=== PATIENT | female | born 1970 | race Caucasian/White ===

== ENCOUNTER 2019-09-06 00:32 | Day surgery (SDC) | payer BC, OTHER, SELFPAY ==
[2019-09-02 13:10] VITALS: BMI 39.4
[2019-09-06] MEDS: LACTATED RINGERS 1,000 ML 30 ML IV CONT (06:25)
[2019-09-06 06:31] VITALS: BP 134/62; PULSE 67; RESP 20; TEMP 36.7; O2SAT 100
--- NOTE | 2019-09-06 06:40 | WPDANESEPPF ---
Anes - Initial Pre Proc Eval Procedure: Operation Date: 09/06/19 09:15 Proposed Procedures p Hysteroscopy, Dilation and Curettage - Melody Ravi MD Date/Time: 09/06/19 06:40 Surgeon: Melody Ravi MD Pre Op Diagnosis: Menorrhagia Patient Data Age: 49 Gender: F Height: 5 ft 4 in Weight: 116.4 kg Last Vital Signs Temp 36.7 C 09/06/19 06:31 Pulse 67 09/06/19 06:31 Resp 20 09/06/19 06:31 BP 134/62 09/06/19 06:31 Pulse Ox 100 09/06/19 06:31 Allergies Allergy/AdvReac Type Severity Reaction Status Date / Time No Known Allergies Allergy Verified 09/06/19 06:12 Home Medications Medication Instructions Recorded Confirmed Type alprazolam 0.25 mg PO DAILY PRN 09/02/19 09/02/19 History lisinopril 5 mg PO DAILY 09/02/19 09/06/19 History omeprazole 20 mg PO DAILY 09/02/19 09/06/19 History thyroid (pork) [[place] Thyroid] 120 mg PO DAILY 09/02/19 09/06/19 History Patient hx anesthesia problems: none Family hx anesthesia problems: none [facility] Past Medical History Medical History (Updated 09/06/19 @ 06:42 by Bijan Thao MD) Depression GERD (gastroesophageal reflux disease) HTN (hypertension) Hypothyroidism Morbid obesity Anes - Eval Final PreProcedure Day of Procedure 09/06/19 06:40 Patient weight: morbidly obese Heart: regular rate and rhythm Lungs: clear to auscultation Airway: Mallampati scale class II Neurological: alert and oriented Last oral intake: >/= 8 hours ASA classification: III Emergent: no Anesthetic plan: proceed Anesthesia type and monitoring: general GIVS and standard monitoring Informed Consent: The patient's anesthetic plan and its attendant risks and benefits were discussed with the patient/family/POA. Questions were solicited and answers provided to the satisfaction of the patient/family/POA.
--- NOTE | 2019-09-06 06:46 | ECG_ITS ---
Measurements Intervals [place] Rate: 70 P: 18 [place]: 169 QRS: 30 QRSD: 101 T: 24 QT: 385 QTc: 416 Interpretive Statements SINUS RHYTHM NORMAL ECG Electronically Signed On 09-06-2019 8:17:14 DEXIGRAPH OPERATOR by Adriel Aparicio D.O.
--- NOTE | 2019-09-06 07:09 | PM.HPGS ---
History of Present Illness History of Present Illness Consent: Risks, benefits, and alternatives have been discussed and questions answered. Patient agrees to proceed with procedure. Chief complaint: Menorrhagia Narrative: Mamadou Bush is a 49 year old female A1 with menorrhagia. Patient with onset of cycle 07/27/19 and bled continuously until 09/04/19. Cycles over past year have been q month except she did skip 2 months. Recommend to proceed with work up of abnormal bleeding with hysteroscopy and D&C. Reviewed risks of infection, bleeding, and perforation. Discussed possible pathology. Patient voices understanding and agrees to proceed. [facility] Past Medical History Medical History (Updated 09/06/19 @ 07:14 by Melody Ravi MD) Depression GERD (gastroesophageal reflux disease) HTN (hypertension) Hypothyroidism Morbid obesity Surgical History Surgical History (Updated 09/06/19 @ 07:13 by Melody Ravi MD) S/P laparoscopic cholecystectomy Meds Home Medications and Allergies Home Medications Medication Instructions Recorded Confirmed Type alprazolam 0.25 mg PO DAILY PRN 09/02/19 09/02/19 History lisinopril 5 mg PO DAILY 09/02/19 09/06/19 History omeprazole 20 mg PO DAILY 09/02/19 09/06/19 History thyroid (pork) [[place] Thyroid] 120 mg PO DAILY 09/02/19 09/06/19 History Allergies Allergy/AdvReac Type Severity Reaction Status Date / Time No Known Allergies Allergy Verified 09/06/19 06:12 Vital Signs Vital Signs - 24 hr 09/06/19 06:31 Temperature 98.1 F Pulse Rate 67 Respiratory Rate 20 Blood Pressure 134/62 Pulse Oximetry 100 Exam Narrative: Exam Narrative: BMI 43.7 Const: General: no acute distress Resp: Auscultation: clear to auscultation bilaterally Cardio: Rate: regular rate Rhythm: regular rhythm GI: GI Palp: Yes Soft to palpation Percussion: Yes other (suboptimal due to panus) Assessment and Plan Assessment and plan (1) Menorrhagia: Code(s): N92.0 - Excessive and frequent menstruation with regular cycle Status: Acute Assessment and Plan: Plan to proceed with hysteroscopy and D&C
--- NOTE | 2019-09-06 08:02 | PM.OP ---
Procedure Note - Brief Procedure Note - Brief Date of procedure: 09/06/19 Pre-op diagnosis: Menorrhagia Post-op diagnosis: same Procedure performed: D&C hysteroscopy with myosure Anesthesia: MAC and local Surgeon: Melody Ravi MD Estimated blood loss (mL): 5 Drains: No Packing: No Pathology: yes (myosure shavings and endometrial curettings) Complications: No immediate complications Condition: stable Disposition: PACU Findings: uterus 10 cm; anterior wall thickened with calcifications
--- NOTE | 2019-09-06 08:03 | SUR.OPER ---
hysteroscopy fluid 700ml in 680ml out
[2019-09-06 08:10] VITALS: BP 115/62; PULSE 73; RESP 18; O2SAT 99
[2019-09-06 08:35] VITALS: BP 111/66; PULSE 54; RESP 14
[2019-09-06 09:05] VITALS: BP 112/62; PULSE 58; RESP 14
--- NOTE | 2019-09-06 11:57 | OP_ITS ---
DATE OF PROCEDURE: 09/06/2019 PREOPERATIVE DIAGNOSIS: Menorrhagia. POSTOPERATIVE DIAGNOSIS: Menorrhagia. PROCEDURE: D and C, hysteroscopy with MyoSure biopsy. PATHOLOGY: Endometrial shavings and curettings. ESTIMATED BLOOD LOSS: 5 cc. DESCRIPTION OF PROCEDURE: The patient was taken to the operating room, placed under anesthesia in the dorsal lithotomy position. She was prepped and draped in the usual sterile fashion. Bivalved speculum was placed in the vagina. Cervix was grasped on the anterior lip with a tenaculum and injected with 1% lidocaine. The uterus was sounded to 10 cm. The cervix was serially dilated with Hegars. The diagnostic hysteroscope was placed. The anterior fundal wall appears thickened with calcifications. The remainder of the endometrium appears grossly normal. The MyoSure device was opened and placed. Under direct visualization, the thickened anterior wall was biopsied throughout. The MyoSure device was removed. The medium sharp curette was used to sharply curette the remainder of the endometrium until a good uterine cry was noted in all areas. All instruments were then removed. The patient was awakened from anesthesia and taken to Recovery in stable condition. D I MT: Sam
== END 2019-09-06 09:25 | disposition home or self-care (01) ==
PROVIDERS: Visit Provider Obstetrics & Gynecology Gynecology
PROC: 0U5B8ZZ Destruction of Endometrium, Via Natural or Artificial Opening Endoscopic (ICD-10-PCS; CPT 58563; principal; 2019-09-06 09:15)
DX: N92.0 Excessive and frequent menstruation with regular cycle (principal); N84.0 Polyp of corpus uteri; I10 Essential (primary) hypertension; E03.9 Hypothyroidism, unspecified; K21.9 Gastro-esophageal reflux disease without esophagitis; E66.01 Morbid (severe) obesity due to excess calories; Z68.41 Body mass index [BMI] 40.0-44.9, adult
CPT/HCPCS: 58558; 88305; 93005; A9270; J0131; J1100; J2250; J2405; J2704; J3010; J7030; J7120

== ENCOUNTER 2020-02-29 09:53 | Emergency (ER) | payer OTHER, SELFPAY ==
--- NOTE | ~2020-02-29 | US_ITS ---
EXAMINATION: US pelvic complete w TV DATE: 02/29/2020 12:22 INDICATION: Abnormal uterine bleeding. TECHNIQUE: Multiple transabdominal and transvaginal sonographic images of the pelvis were obtained. COMPARISON: CT abdomen and pelvis FINDINGS: TRANSABDOMINAL ULTRASOUND: The uterus measures 11.2 x 5.2 x 6.1 cm. The right ovary measures 2.4 x 1.0 x 2.0 cm. There is no des e fluid in the pelvis. TRANSVAGINAL ULTRASOUND: The endometrial complex measures 4 mm in thickness. There is a 3.1 cm hypoechoic intramural fibroid i n the anterior uterus. There are multiple nabothian cysts in the cervix. The left ovary is not visual ized. IMPRESSION: 1. Uterine fibroid. Reviewed, dictated and finalized at location B. IMPRESSION: 1. Uterine fibroid.
[2020-02-29 10:01] VITALS: BP 144/69; PULSE 92; RESP 19; TEMP 36.8; O2SAT 100
[2020-02-29 10:38] VITALS: BP 123/75; PULSE 78
[2020-02-29 10:39] VITALS: BP 128/79; PULSE 79
[2020-02-29 10:40] VITALS: BP 118/76; PULSE 82
[2020-02-29 10:43] LABS: Basophils Percent Auto 0.6 % (0.2-1.2); Eosinophils Absolute Auto 0.4 K/mm3 (0-0.3); Eosinophils Percent Auto 6.5 % (0-4.4); Hematocrit 39.1 % (37.0-47.0); Immature Granulocyte Absolute 0.03 K/mm3 (0.00-0.031); Immature Granulocyte Percent A 0.6 % (0-0.5); Lymphocytes Absolute Auto 1.54 K/mm3 (0.9-3.2); Lymphocytes Percent Auto 28.5 % (18.3-44.2); Mean Corpuscular HGB Conc 33.2 g/dl (32-36); Mean Corpuscular Hemoglobin 31.5 pg (26-34); Mean Corpuscular Volume 94.7 fl (80-100); Mean Platelet Volume 10.2 fl (7.4-10.4); Monocytes Absolute Auto 0.4 K/mm3 (0.1-0.6); Monocytes Percent Auto 7.2 % (2.6-8.5); Neutrophils Absolute Auto 3.1 K/mm3 (1.3-6.7); Neutrophils Percent Auto 56.6 % (45.5-73.1); Platelet Count Result 217 k/mm3 (150-375); Red Blood Count 4.13 M/mm3 (4.2-5.4); Red Cell Distribution Width 12.5 % (11.5-14.5); White Blood Count 5.4 K/mm3 (4.5-10.0)
--- NOTE | 2020-02-29 10:52 | ED.FEMALEGU ---
HPI - Female Genitourinary General Chief complaint: Vaginal Bleeding <Natalie Morley PA-C - Last Filed: 02/29/20 13:04> Stated complaint: vb <Natalie Morley PA-C - Last Filed: 02/29/20 13:04> Time Seen by Provider: 02/29/20 10:10 <Natalie Morley PA-C - Last Filed: 02/29/20 13:04> Source: patient <Natalie Morley PA-C - Last Filed: 02/29/20 13:04> Mode of arrival: ambulatory <Natalie Morley PA-C - Last Filed: 02/29/20 13:04> Limitations: no limitations <Natalie Morley PA-C - Last Filed: 02/29/20 13:04> History of Present Illness HPI Narrative: This is a 49-year-old female that presents the emergency department for abnormal uterine bleeding. Reports last month she had a very heavy menstrual cycle that lasted for 1 week. Reports she saw her ged teacher for this and was told to start control with the next cycle. She started her cycle yesterday and had very heavy bleeding again which prompted her to be seen. She has not started the control yet. Reports she is having low back pain with her periods. Her ged teacher is Dr. Ravi. Denies fever, abdominal pain, nausea, vomiting, or dysuria. <Natalie Morley PA-C - Last Filed: 02/29/20 13:04> Review of Systems Review of Systems: Narrative: CONSTITUTIONAL: Denies fever GASTROINTESTINAL: Denies abdominal pain, nausea, vomiting GENITOURINARY: Denies dysuria <Natalie Morley PA-C - Last Filed: 02/29/20 13:04> All systems reviewed & are unremarkable except as noted in HPI and below <Natalie Morley PA-C - Last Filed: 02/29/20 13:04> [facility] Past Medical History Medical History: Medical History (Updated 02/29/20 @ 13:03 by Natalie Morley PA-C) History of hypothyroidism <Natalie Morley PA-C - Last Filed: 02/29/20 13:04> Social History Social History: Social History (Updated 02/29/20 @ 10:52 by Natalie Morley PA-C) Smoking status: Never smoker Substance use: never Gender identity (if verbalized by the patient): Female <Natalie Morley PA-C - Last Filed: 02/29/20 13:04> Exam Narrative: Exam Narrative: GENERAL: Well-appearing, obese, and in no acute distress. HEAD: Normocephalic, atraumatic. EYES: EOMI. CHEST: Clear to auscultation. No respiratory distress. No wheezes rales or rhonchi HEART: Regular rate and rhythm. No murmur heard. Normal peripheral pulses. ABDOMEN: Soft, nontender, nondistended, normal active bowel sounds. EXTREMITIES: Normal range of motion. No edema. SKIN: Warm, dry, no rash. NEURO: No focal deficits. Alert and oriented x3. PSYCH: Normal mood and affect PELVIC: Normal external genitalia. Small to moderate amount of blood in the vaginal vault. Blood slowly oozing from the cervix <Natalie Morley PA-C - Last Filed: 02/29/20 13:04> Course Consultations Consultation #1: Spoke with Dr. Ravi about patient and work-up. Patient is to continue with plan and start her control. She will follow-up in clinic. <Natalie Morley PA-C - Last Filed: 02/29/20 13:04> Date: 02/29/20 <Natalie Morley PA-C - Last Filed: 02/29/20 13:04> Time: 13:02 <Natalie Morley PA-C - Last Filed: 02/29/20 13:04> Vital Signs Vital signs: Vital Signs Temperature 36.8 C 02/29/20 10:01 Pulse Rate 92 02/29/20 10:01 Respiratory Rate 19 02/29/20 10:01 Blood Pressure 144/69 H 02/29/20 10:01 Pulse Oximetry 100 02/29/20 10:01 Temperature 36.8 C 02/29/20 10:01 Pulse Rate 78 02/29/20 13:11 Respiratory Rate 16 02/29/20 13:11 Blood Pressure 134/75 02/29/20 13:11 Pulse Oximetry 100 02/29/20 13:11 <Natalie Morley PA-C - Last Filed: 02/29/20 13:04> Vital Signs Temperature 36.8 C 02/29/20 10:01 Pulse Rate 92 02/29/20 10:01 Respiratory Rate 19 02/29/20 10:01 Blood Pressure 144/69 H 02/29/20 10:01 Pulse Oximetry 100 02/29/20 10:01 Temperature 36.8 C 02/29/20 10:01 Pulse Rate 78 02/29/20 13:11
[2020-02-29] MEDS: IBUPROFEN 600 MG TABLET PO (10:54)
[2020-02-29 10:56] LABS: Partial Thromboplastin Time 25.3 SECONDS (22.3-36.8); Prothrombin Time 12.5 Seconds (11.1-14.7)
--- NOTE | 2020-02-29 11:08 | PC.NURSE ---
Pt to US
[2020-02-29 11:09] LABS: Anion Gap 5 mmol/L (8-16); Blood Urea Nitrogen 13 mg/dL (7-17); Calcium 8.3 mg/dL (8.4-10.2); Carbon Dioxide 24 mmol/L (22-30); Chloride 108 mmol/L (98-107); Estimated CRCL calculation 83 ml/min; Estimated Glomerular Filt Rate > 60; Glucose 83 mg/dL (65-105); Potassium 3.9 mmol/L (3.4-5.0); Sodium 137 mmol/L (137-145)
[2020-02-29 12:48] VITALS: BP 136/77; PULSE 81; RESP 18; O2SAT 100
[2020-02-29 13:11] VITALS: BP 134/75; PULSE 78; RESP 16; O2SAT 100
== END 2020-02-29 13:12 | disposition home or self-care (01) ==
PROVIDERS: Physician Assistant; Emergency Provider Emergency Medicine
DX: N93.8 Other specified abnormal uterine and vaginal bleeding (principal); E03.9 Hypothyroidism, unspecified; D25.9 Leiomyoma of uterus, unspecified
CPT/HCPCS: 36415; 76830; 76856; 80048; 81025; 85025; 85610; 85730; 86850; 86900; 86901; 99284; A9270

== ENCOUNTER 2022-05-23 07:43 | Emergency (ER) | payer OTHER, SELFPAY ==
--- NOTE | ~2022-05-23 | XR_ITS ---
EXAMINATION: XR knee RT min 4V DATE: 05/23/2022 08:32 INDICATION: Chronic right knee pain. TECHNIQUE: 5 views of right knee were obtained. COMPARISON: None. FINDINGS: There is varus angulation at the knee. No fracture. There is moderate osteoarthritis of med ial compartment, mild osteoarthritis of lateral compartment, and severe osteoarthritis of patellofemo ral compartment. No knee joint effusion. IMPRESSION: 1. Severe right knee osteoarthritis. Reviewed, dictated and finalized at location A.
--- NOTE | ~2022-05-23 | XR_ITS ---
EXAMINATION: XR knee LT min 4V DATE: 05/23/2022 08:33 INDICATION: Left knee pain. TECHNIQUE: 6 views of left knee were obtained. COMPARISON: None. FINDINGS: Bone alignment is normal. No fracture. There is mild osteoarthritis of medial and lateral c ompartments and moderate osteoarthritis of patellofemoral compartment. There is a moderate-sized knee joint effusion. IMPRESSION: 1. Moderate left knee osteoarthritis. 2. Moderate-sized left knee joint effusion. Reviewed, dictated and finalized at location A.
[2022-05-23 07:46] VITALS: BP 156/83; PULSE 70; RESP 14; TEMP 36.4; O2SAT 100
--- NOTE | 2022-05-23 07:46 | ED.LOWEXIN ---
HPI - Extremity Injury (Lower) General Chief Complaint: Extremity Injury, Lower Stated Complaint: Left Knee Pain Time Seen by Provider: 05/23/22 07:45 Source: patient Mode of arrival: ambulatory Limitations: no limitations History of Present Illness HPI Narrative: Patient is a 51-year-old female with a history of psoriatic arthritis, fibromyalgia, hypertension, hyperlipidemia, hypothyroidism, presenting to the emergency department for evaluation of left knee pain. Patient states she has a history of osteoarthritis in the right knee, has been compensating for her left knee for quite some time. Patient states that last night when she was descending a step, she placed her full weight on her left knee with an immediate popping sensation in the posterior aspect of the knee and immediate sharp pain. Pain seems to be positional in nature and aggravated with movement. At times, the pain is in the anterior aspect of the knee or the posterior aspect, does seem to change based on position. Patient denies calf pain or redness. She denies significant swelling or bruising. Patient denies systemic symptoms such as fever, chills, vomiting. She denies hip pain. Patient denies numbness or focal weakness. Related Data Home Medications Medication Instructions Recorded Confirmed alprazolam 0.25 mg tablet 0.25 mg PO DAILY PRN Anxiety 09/02/19 09/02/19 lisinopril 5 mg tablet 5 mg PO DAILY 09/02/19 09/06/19 omeprazole 20 mg tablet,delayed 20 mg PO DAILY 09/02/19 09/06/19 release thyroid (pork) 120 mg tablet 120 mg PO DAILY 09/02/19 09/06/19 ([place] Thyroid) Allergies Allergy/AdvReac Type Severity Reaction Status Date / Time No Known Allergies Allergy Verified 09/06/19 06:12 Review of Systems Review of Systems: CONSTITUTIONAL: Denies fever CARDIOVASCULAR: Denies chest pain RESPIRATORY: Denies cough or dyspnea. GASTROINTESTINAL: Denies abdominal pain SKIN: Denies rash MUSCULOSKELETAL: Denies back pain, reports chronic right knee pain, reports acute left knee pain NEUROLOGIC: Denies headache [facility] Past Medical History Medical History Depression GERD (gastroesophageal reflux disease) HTN (hypertension) Hypothyroidism Morbid obesity Surgical History Surgical History S/P laparoscopic cholecystectomy Social History Social History (Updated 05/23/22 @ 08:00 by Luz Escobedo MD) Smoking status: Never smoker Alcohol intake: current Alcohol use details: Rarely Substance use: never Occupation/Education: occupation Additional occupation/education comments: nurse Gender identity (if verbalized by the patient): Female Exam Narrative: GENERAL: Awake, alert, conversant HEAD: Normocephalic, atraumatic. EYES: PERRLA and EOMI. ENT: Nares clear, no rhinorrhea or epistaxis. Mucous membranes moist. NECK: Supple. CHEST: No respiratory distress, breathing even and non labored HEART: Regular rate, sinus rhythm ABDOMEN:Non distended, non tender EXTREMITIES: Left knee, patella appears to be midline. Body habitus obscures some of the anatomy. Patient with posterior and anterior joint tenderness. There is pain with knee flexion although patient does have active flexion to 90 degrees. Patient without significant pain with extension. No significant anterior laxity. No deformity, ecchymosis, edema, warmth or induration. SKIN: Warm, dry, no rash. NEURO:No focal deficits. Alert and oriented x3 Course Vital Signs Vital signs: Vital Signs Temperature 36.4 C 05/23/22 07:46 Pulse Rate 70 05/23/22 07:46 Respiratory Rate 14 05/23/22 07:46 Blood Pressure 156/83 H 05/23/22 07:46 Pulse Oximetry 100 05/23/22 07:46 Temperature 36.4 C 05/23/22 07:46 Pulse Rate 70 05/23/22 07:46 Respiratory Rate 14 05/23/22 07:46 Blood Pressure 156/83 H 05/23/22 07:46 Pulse Oximetry 100 05/23/22 07:46
[2022-05-23] MEDS: oxyCODONE/ACETAMINOPHEN (*CRX) 5-325 MG TABLET 1 TABLET PO (08:31)
[2022-05-23] MEDS: IBUPROFEN 400 MG TABLET PO (08:31)
== END 2022-05-23 09:05 | disposition home or self-care (01) ==
PROVIDERS: Emergency Provider Emergency Medicine
DX: M25.462 Effusion, left knee (principal); M17.11 Unilateral primary osteoarthritis, right knee; I10 Essential (primary) hypertension; E78.5 Hyperlipidemia, unspecified; E03.9 Hypothyroidism, unspecified; M79.7 Fibromyalgia
CPT/HCPCS: 73564; 99284; A9270